=== PATIENT | female | born 1985 | race Two or more races ===

== ENCOUNTER 2024-01-31 19:39 | Emergency (ER) | payer OTHER ==
[2024-01-31 19:47] VITALS: BP 129/81; PULSE 83; RESP 20; TEMP 99.3; BMI 34.7
[2024-01-31] MEDS ORDERED: guaiFENesin/D-METHORPHAN HB 10 ML UNIT-DOSE CUPS ONE (20:48)
[2024-01-31] MEDS ORDERED: ALBUTEROL SO4 2.5/IPRATROPIUM 0.5 INH SOL 3 ML VIAL.NEB. NEB ONE (20:48)
[2024-01-31] MEDS: ALBUTEROL SO4 2.5/IPRATROPIUM 0.5 INH SOL 3 ML VIAL.NEB. NEB ONE (21:00)
[2024-01-31] MEDS: guaiFENesin/D-METHORPHAN HB 10 ML UNIT-DOSE CUPS PO ONE (21:00)
[2024-01-31] MEDS ORDERED: predniSONE 20 MG TABLET (UD) ONE (21:36)
[2024-01-31] MEDS: predniSONE 20 MG TABLET (UD) PO ONE (21:51)
== END 2024-01-31 21:52 | disposition home or self-care (01) ==
LOC: JERFT 19:39
PROC: 3E0F7GC Introduction of Other Therapeutic Substance into Respiratory Tract, Via Natural or Artificial Opening (ICD-10-PCS; principal; 2024-01-31)
DX: J40 Bronchitis, not specified as acute or chronic (principal); R50.9 Fever, unspecified; R05.9 Cough, unspecified; Z20.822 Contact with and (suspected) exposure to COVID-19
CPT/HCPCS: 0241U-QW; 71046-TC-FY; 94640; 99284-25

== ENCOUNTER 2024-04-26 22:14 | Emergency (ER) | payer OTHER ==
[2024-04-26 22:22] VITALS: BP 134/87; PULSE 68; RESP 18; TEMP 98.3; BMI 74.5
[2024-04-26] MEDS: KETOROLAC TROMETHAMINE 30 MG/1 ML VIAL IM ONE (23:00)
== END 2024-04-26 23:05 | disposition home or self-care (01) ==
LOC: JERFT 22:14 → JER 22:14 → JERFT 23:05
DX: K02.9 Dental caries, unspecified (principal); K08.89 Other specified disorders of teeth and supporting structures
CPT/HCPCS: 99283-25